=== PATIENT | male | born 1955 | race Caucasian/White ===

== ENCOUNTER 2016-04-25 10:08 | Outpatient (CLI) | payer OTHER | END 2016-04-25 10:09 | disposition home or self-care (01) | DX: M51.16 Intervertebral disc disorders with radiculopathy, lumbar region (principal) ==

== ENCOUNTER 2016-05-07 13:35 | Outpatient (CLI) | payer OTHER | END 2016-05-07 13:36 | disposition home or self-care (01) | DX: M47.816 Spondylosis without myelopathy or radiculopathy, lumbar region (principal); M47.817 Spondylosis without myelopathy or radiculopathy, lumbosacral region; M51.26 Other intervertebral disc displacement, lumbar region ==

== ENCOUNTER 2016-06-06 11:12 | Outpatient (CLI) | payer OTHER | END 2016-06-06 11:13 | disposition home or self-care (01) | DX: M77.32 Calcaneal spur, left foot (principal) ==

== ENCOUNTER 2016-11-21 13:19 | Outpatient (CLI) | payer OTHER ==
--- NOTE | 2016-11-21 15:05 | MRI Report ---
EXAM: LEFT KNEE MRI WITHOUT CONTRAST EXAM DATE: 11/21/2016 02:12 PM. CLINICAL HISTORY: Derangement, internal, KNEE NOS. COMPARISON: None. TECHNIQUE: Multiplanar, multisequence T1-weighted and fluid-sensitive sequences of the knee without c ontrast. Other: None. FINDINGS: Bones: Postsurgical changes versus old fracture deformity in the posterior and medial proximal tibia. No acute fractures or subluxations. Diffuse moderate marrow edema in the posterior proximal tibia in volving the juxta-articular region, associated with cystic changes in the posterior intercondylar ca nence, can be due to reactive changes. No other bone lesions. Articular Cartilage: Unremarkable. Medial Meniscus: A complex tear in the posterior horn of the medial meniscus with horizontal componen t that extends to the posterior third of the body, and small radial components in the free edge of th e posterior horn and the posterior meniscal root. Lateral Meniscus: The lateral meniscus is intact. Cruciate Ligaments: An intrasubstance longitudinal split tear in the posterior cruciate ligament with out laxity. The anterior cruciate ligament is intact. Collateral Ligaments: Mild grade 1 sprain of the medial collateral ligament with mild surrounding sophy ma. The posterior oblique and the lateral collateral ligament s are intact. Tendons: The quadriceps, patellar, semimembranosus, and popliteus tendons are unremarkable. Musculature: No edema or fatty atrophy. Other: Nonspecific mild effusion. No popliteal cyst. There is a cluster of septated ganglion cysts ad jacent to the origin of the lateral head of gastrocnemius measuring about 23 mm in length, 13 x 9 mm in cross section. No loose bodies. The medial and lateral retinacula, patellofemoral ligaments and i liotibial band are intact. No bursitis. Nonspecific subcutaneous edema around the knee. The fat pads are unremarkable. IMPRESSION: 1. A complex tear in the posterior horn of the medial meniscus with horizontal component that extends to the posterior third of the body, and small radial components in the free edge of the posterior ho rn and the posterior meniscal root. 2. An intrasubstance longitudinal split tear in the posterior cruciate ligament without laxity. 3. Mild grade 1 sprain of the medial collateral ligament. 4. Diffuse moderate marrow edema in the posterior proximal tibia involving the juxta-articular region , associated with cystic changes in the posterior intercondylar eminence, can be due to reactive almendarez ges, and/or contusion. 5. Postsurgical changes versus old fracture deformity in the posterior and medial proximal tibia. No acute cortical fracture. 6. A cluster of septated ganglion cysts adjacent to the origin of the lateral head of gastrocnemius m easuring about 23 mm in length, 13 x 9 mm in cross section, of uncertain clinical significance. [facility]CUL[facility] SECTION Referring Provider Line: [phone] SITE ID: [id number]
== END 2016-11-21 13:20 | disposition home or self-care (01) ==
LOC: DI 13:19
PROVIDERS: ATTEND Physician Assistant Medical
DX: M23.222 Derangement of posterior horn of medial meniscus due to old tear or injury, left knee (principal); M23.632 Other spontaneous disruption of medial collateral ligament of left knee; M23.622 Other spontaneous disruption of posterior cruciate ligament of left knee; M67.462 Ganglion, left knee

== ENCOUNTER 2018-02-13 08:00 | Outpatient (CLI) | payer OTHER ==
[2018-02-13 14:25] LABS: BASOPHILS % (AUTO) 0.7 %; EOSINOPHILS # (AUTO) 0.1 10^3/uL (0.0-0.7); EOSINOPHILS % (AUTO) 1.3 %; HGB - HEMOGLOBIN 15.6 g/dL (14.0-18.0); LYMPHOCYTES # (AUTO) 1.5 10^3/uL (1.5-3.5); LYMPHOCYTES % (AUTO) 26.8 %; MEAN CORPUSCULAR HEMOGLOBIN 30.2 pg (27.0-31.0); MEAN CORPUSCULAR VOLUME 88.7 fL (80.0-94.0); MEAN PLATELET VOLUME 8.9 fL (7.4-11.4); MONOCYTES # (AUTO) 0.4 10^3/uL (0.0-1.0); MONOCYTES % (AUTO) 7.3 %; NEUTROPHILS # (AUTO) 3.7 10^3/uL (1.5-6.6); NEUTROPHILS % (AUTO) 63.9 %; PLT - PLATELET COUNT 235 10^3/uL (130-450); RED BLOOD COUNT 5.16 10^6/uL (4.70-6.10); RED CELL DISTRIBUTION WIDTH 13.6 % (12.0-15.0); WHITE BLOOD COUNT 5.8 x10^3/uL (4.8-10.8)
[2018-02-13 14:54] LABS: ALBUMIN 4.3 g/dL (3.2-5.5); ALBUMIN/GLOBULIN RATIO 1.7 (1.0-2.2); ALKALINE PHOSPHATASE 63 IU/L (42-121); ALT ALANINE AMINOTRANSFERASE 30 IU/L (10-60); AST ASPARTATE AMINOTRANSFERASE 31 IU/L (10-42); BILIRUBIN,TOTAL 1.1 mg/dL (0.2-1.0); BUN - BLOOD UREA NITROGEN 15 mg/dL (6-20); CALCIUM 8.7 mg/dL (8.5-10.3); CARBON DIOXIDE - CO2 28 mmol/L (21-32); CHLORIDE 103 mmol/L (101-111); CHOL/HDL RATIO 6.6 (<5.0); CHOLESTEROL 212 mg/dL; CREATININE 0.6 mg/dL (0.6-1.2); GFR - MDRD 136 (>89); GLUCOSE 95 mg/dL (70-100); HDL CHOLESTEROL 32 mg/dL; LDL CHOLESTEROL,CALCULATED 134 mg/dL; LDL/HDL RATIO 4.2 (<3.6); SODIUM 138 mmol/L (135-145); TOTAL PROTEIN 6.8 g/dL (6.7-8.2); VLDL CHOLESTEROL 46 mg/dL
[2018-02-14 12:42] LABS: HEPATITIS C ANTIBODY NON-REACTIVE (NON-REACTIVE)
== END 2018-02-13 08:01 | disposition home or self-care (01) ==
LOC: LAB.R 08:00
PROVIDERS: ATTEND Physician Assistant Medical
DX: Z00.00 Encounter for general adult medical examination without abnormal findings (principal); Z12.5 Encounter for screening for malignant neoplasm of prostate; Z13.818 Encounter for screening for other digestive system disorders; Z79.899 Other long term (current) drug therapy; M54.16 Radiculopathy, lumbar region
CPT/HCPCS: 80053; 80061; 83721; 84153; 84443; 85025; 86803

== ENCOUNTER 2018-04-06 10:52 | Emergency (ER) | payer OTHER ==
[2018-04-06] MEDS ORDERED: METOPROLOL 5 MG/5 ML VIAL IVP STA ×3 (11:19→13:09)
[2018-04-06 11:27] LABS: BASOPHILS % (AUTO) 0.6 %; EOSINOPHILS % (AUTO) 0.8 %; HGB - HEMOGLOBIN 16.2 g/dL (14.0-18.0); LYMPHOCYTES # (AUTO) 1.5 10^3/uL (1.5-3.5); LYMPHOCYTES % (AUTO) 26.6 %; MEAN CORPUSCULAR HEMOGLOBIN 30.3 pg (27.0-31.0); MEAN CORPUSCULAR HGB CONC 34.2 g/dL (32.0-36.0); MEAN CORPUSCULAR VOLUME 88.6 fL (80.0-94.0); MEAN PLATELET VOLUME 8.6 fL (7.4-11.4); MONOCYTES # (AUTO) 0.5 10^3/uL (0.0-1.0); MONOCYTES % (AUTO) 8.7 %; NEUTROPHILS # (AUTO) 3.7 10^3/uL (1.5-6.6); NEUTROPHILS % (AUTO) 63.3 %; PLT - PLATELET COUNT 233 10^3/uL (130-450); RED BLOOD COUNT 5.35 10^6/uL (4.70-6.10); RED CELL DISTRIBUTION WIDTH 13.9 % (12.0-15.0); WHITE BLOOD COUNT 5.8 x10^3/uL (4.8-10.8)
--- NOTE | 2018-04-06 11:28 | ED Physician Documentation ---
History of Present Illness - Stated complaint Stated Complaint: RAPID HEAT BEAT - Chief complaint Chief Complaint: Cardiac - History obtained from History obtained from: Patient, Other (PMD) - History of Present Illness Timing: Unknown - Additonal information Additional information: The patient is a 62-year-old male who arrives from his primary physician's offic e where he was found to be tachycardic, with suspected atrial fibrillation. He reports palpitations, with his heart racing, for perhaps as long as 4 weeks. His symptoms shortly after the of his father. He suspected it was related to his grieving process. He denies any associated chest pain, shortness of breath, or lightheadedness. He denies history of similar symptoms in the past. He is otherwise healthy, and takes no medications. Review of Systems Constitutional: denies: Fever, Fatigue Ears: denies: Tinnitus/ringing Nose: denies: Congestion Throat: denies: Sore throat Cardiac: reports: Palpitations. denies: Chest pain / pressure Respiratory: denies: Dyspnea, Cough GI: denies: Abdominal Pain, Nausea, Vomiting : denies: Dysuria Skin: denies: Rash Musculoskeletal: denies: Back pain, Extremity swelling Neurologic: denies: Focal weakness, Numbness, Headache PD PAST MEDICAL HISTORY - Past Medical History Cardiovascular: None Respiratory: None Neuro: None Endocrine/Autoimmune: None - Present Medications Home Medications: Ambulatory Orders Medication Instructions Recorded Confirmed Metoprolol Succinate 50 mg PO DAILY #30 tab.er.24h 04/06/18 - Allergies Allergies/Adverse Reactions: Allergies Allergy/AdvReac Type Severity Reaction Status Date / Time No Known Drug Allergies Allergy Verified 04/06/18 11:07 - Social History Does the pt smoke?: No PD ED PE NORMAL - Vitals Vital signs reviewed: Yes (tachycardic with a ventricular rate in the 140s.) - General General: Alert and oriented X 3, Well developed/nourished - HEENT HEENT: Atraumatic, Moist mucous membranes - Neck Neck: No adenopathy, No JVD - Cardiac Cardiac: No murmur, Other (Rapid rate, regular rhythm.) - Respiratory Respiratory: No respiratory distress, Clear bilaterally - Abdomen Abdomen: Soft, Non tender - Back Back: No CVA TTP - Derm Derm: No rash - Extremities Extremities: No edema, No calf tenderness / cord - Neuro Neuro: Alert and oriented X 3, No motor deficit, No sensory deficit Results - Vitals Vitals: Oxygen O2 Source Room air - EKG (time done) 10:58 Rate: Rate (enter#) (144) Rhythm: Atrial flutter - Labs Labs: Laboratory Tests 04/06/18 04/06/18 04/06/18 11:13 11:13 11:13 WBC 5.8 RBC 5.35 Hgb 16.2 Hct 47.4 MCV 88.6 MCH 30.3 MCHC 34.2 RDW 13.9 Plt Count 233 MPV 8.6 Neut # (Auto) 3.7 Lymph # (Auto) 1.5 [place] # (Auto) 0.5 Eos # (Auto) 0.0 Baso # (Auto) 0.0 Absolute Nucleated RBC 0.00 Nucleated RBC % 0.0 Sodium 139 Potassium 4.0 Chloride 103 Carbon Dioxide 26 Anion Gap 10.0 BUN 20 Creatinine 1.0 Estimated GFR (MDRD) 75 L Glucose 96 Calcium 9.0 Total Bilirubin 1.6 H AST 23 ALT 20 Alkaline Phosphatase 74 Troponin I < 0.04 Total Protein 7.0 Albumin 4.4 Globulin 2.6 Albumin/Globulin Ratio 1.7 Lipase 30 - Rads (name of study) CXR Radiology: Prelim report reviewed, EMP read contemporaneously, See rad report (No acute cardiopulmonary abnormality.) PD MEDICAL DECISION MAKING - ED course Complexity details: reviewed results, re-evaluated patient, considered differential, d/w patient ED course: The patient's presentation is significant for atrial flutter with initially 2-1 block. His presentation does not suggest cardiac ischemia. His palpitations have been present for at least 2 weeks, and possibly up to 4 weeks. Electrocardioversion is not clinically indicated due to the duration of his symptoms with attendant risk of intracardiac thrombus and potential stroke. Cardiac ischemia is unlikely, and his troponin is normal. His blood pressure has been well maintained, and there is no evidence of cardiomyopathy. Treatment in the emergency department included administration of aspirin 324 mg orally, and Lopressor 5 mg IV 3. His heart rate responded with variable block, with ventricular rate low 100; his blood pressure briefly dipped into the low 90s systolic. Normal saline was administered IV, and his blood pressure improved. Subsequently his heart rate reverted to atrial flutter with 2:1 block. Diltiazem 10 mg was administered IV, with results of his heart rate coming down to the mid 80s, with rhythm remaining in atrial flutter with variable block. He maintained blood pressure of 108/75. I discussed his condition with Dr. Triplett, ball maker at [facility]. She advises outpatient treatment with metoprolol succinate 50 mg daily, and a full aspirin daily, with outpatient cardiology follow-up. The patient was given contact information to schedule follow-up appointment with cardiology. He is being discharged with prescription for metoprolol, as above. I discussed with him potentially worrisome signs or symptoms that should prompt reevaluation in the emergency department. Departure - Departure Disposition: 01 Home, Self Care Clinical Impression: Atrial flutter Qualifiers: Atrial flutter type: unspecified Qualified Code(s): I48.92 - Unspecified atrial flutter Condition: Stable Instructions: ED Paroxysmal Atrial Flutter Follow-Up: Evita Miller PA-C [Primary Care Provider] - [facility] [Provider Group] Prescriptions: Metoprolol Succinate 50 mg PO DAILY #30 tab.er.24h Comments: Drink plenty of fluids. Take metoprolol 50 mg daily as prescribed. Take 1 full aspirin (325 mg) daily. Schedule follow-up appointment with [facility] cardiology; phone number [phone]. Follow-up with your primary physician. Call to schedule appointment. Return to the emergency department if you develop increasing lightheadedness, shortness of breath, chest pain, or otherwise worsening symptoms. Discharge Date/Time: 04/06/18 15:35
[2018-04-06 11:38] LABS: ALBUMIN 4.4 g/dL (3.2-5.5); ALBUMIN/GLOBULIN RATIO 1.7 (1.0-2.2); BILIRUBIN,TOTAL 1.6 mg/dL (0.2-1.0)
--- NOTE | 2018-04-06 12:05 | XRAY Report ---
Reason: chest pain Procedure Date: 04/06/2018 Accession Number: [id number] / [id number] Procedure: XR - Chest 1 View X-Ray CPT Code: 73861 FULL RESULT: EXAM: CHEST RADIOGRAPHY EXAM DATE: 04/06/2018 11:55 AM. CLINICAL HISTORY: Chest pain. COMPARISON: None. TECHNIQUE: 1 view. FINDINGS: Lungs/Pleura: No focal opacities evident. No pleural effusion. No pneumothorax. Mediastinum: Within exam limitations, the cardiomediastinal contour is normal with suggestion of borderline cardiomegaly felt to be due to portable AP projectional technique. Additionally, mild calcification of the aortic arch noted. Other: None. IMPRESSION: No acute cardiopulmonary abnormality. [facility]
[2018-04-06] MEDS ORDERED: SODIUM CHLORIDE 0.9% 1,000 ML IV ONE (13:31)
[2018-04-06] MEDS ORDERED: diltiaZEM INJ 5 MG/ML VIAL IVP STA (13:46)
[2018-04-06] MEDS ORDERED: METOPROLOL SUCCINATE 50 MG TABLET PO STA (14:20)
[2018-04-06] MEDS ORDERED: ASPIRIN CHEW 81 MG TABLET PO STA (14:21)
[2018-04-06 15:35] VITALS: BP 105/90
== END 2018-04-06 15:35 | disposition home or self-care (01) ==
LOC: ED 10:52
DX: I48.92 Unspecified atrial flutter (principal); I45.2 Bifascicular block; R00.0 Tachycardia, unspecified
CPT/HCPCS: 36415; 71045; 80053; 83690; 84484; 85025; 93005; 96374; 96375; 96376; 99284; 99285; A9270

== ENCOUNTER 2018-05-18 08:00 | Outpatient (CLI) | payer OTHER ==
[2018-05-18 14:53] LABS: CHOLESTEROL 126 mg/dL; HDL CHOLESTEROL 25 mg/dL; LDL CHOLESTEROL,CALCULATED 75 mg/dL; VLDL CHOLESTEROL 26 mg/dL
== END 2018-05-18 23:59 | disposition home or self-care (01) ==
LOC: LAB.R 08:00
PROVIDERS: ATTEND Physician Assistant Medical
DX: E78.2 Mixed hyperlipidemia (principal); Z79.899 Other long term (current) drug therapy
CPT/HCPCS: 80061; 83721

== ENCOUNTER 2023-06-16 14:52 | Outpatient (CLI) | payer MEDICARE ==
[2023-06-16 15:23] LABS: BASOPHILS % (AUTO) 0.5 %; EOSINOPHILS # (AUTO) 0.1 10^3/uL (0.0-0.7); EOSINOPHILS % (AUTO) 1.1 %; HCT - HEMATOCRIT 46.7 % (42.0-52.0); HGB - HEMOGLOBIN 15.1 g/dL (14.0-18.0); LYMPHOCYTES # (AUTO) 1.9 10^3/uL (1.5-3.5); LYMPHOCYTES % (AUTO) 33.7 %; MEAN CORPUSCULAR HEMOGLOBIN 29.5 pg (27.0-31.0); MEAN CORPUSCULAR HGB CONC 32.3 g/dL (32.0-36.0); MEAN CORPUSCULAR VOLUME 91.4 fL (80.0-94.0); MEAN PLATELET VOLUME 10.2 fL (7.4-11.4); MONOCYTES # (AUTO) 0.4 10^3/uL (0.0-1.0); MONOCYTES % (AUTO) 7.6 %; NEUTROPHILS # (AUTO) 3.2 10^3/uL (1.5-6.6); NEUTROPHILS % (AUTO) 56.9 %; PLT - PLATELET COUNT 236 10^3/uL (130-450); RED BLOOD COUNT 5.11 10^6/uL (4.70-6.10); WHITE BLOOD COUNT 5.7 x10^3/uL (4.8-10.8)
[2023-06-16 15:36] LABS: ALBUMIN 4.3 g/dL (3.2-5.5); ALBUMIN/GLOBULIN RATIO 1.7 (1.0-2.2); CALCIUM 9.5 mg/dL (8.5-10.3); CREATININE 0.9 mg/dL (0.6-1.3); POTASSIUM 4.6 mmol/L (3.5-4.5); TOTAL PROTEIN 6.8 g/dL (6.4-8.9)
[2023-06-16 15:49] LABS: THYROID STIMULATING HORMONE 3.64 uIU/mL (0.34-5.60)
== END 2023-06-16 14:53 | disposition home or self-care (01) ==
LOC: LAB 14:52
PROVIDERS: ATTEND Nurse Practitioner Family
DX: R06.09 Other forms of dyspnea (principal); Z12.5 Encounter for screening for malignant neoplasm of prostate
CPT/HCPCS: 36415; 80053; 84443; 85025; G0103; 84153

== ENCOUNTER 2023-10-16 16:33 | Outpatient (CLI) | payer MEDICARE ==
--- NOTE | 2023-10-17 07:44 | XRAY Report ---
PROCEDURE: Knee 1-2V RT INDICATIONS: KNEE JOINT PAIN,RIGHT TECHNIQUE: 3 views of the knee was obtained. COMPARISON: None FINDINGS: Bones: No fractures or dislocations. No suspicious bony lesions. Moderate medial compartment joint space narrowing Soft tissues: No knee joint effusion. No suspicious soft tissue calcifications or masses. 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
--- NOTE | 2023-10-17 07:50 | XRAY Report ---
PROCEDURE: Ankle 1-2V RT INDICATIONS: KNEE JOINT PAIN,RIGHT TECHNIQUE: 2 views of the ankle were acquired. COMPARISON: None FINDINGS: Bones: No fractures or dislocations. Ankle mortise is normally aligned. No suspicious bony lesions . Generalized decreased osseous mineralization present. Small plantar calcaneal spur Soft tissues: Unremarkable without significant soft tissue swelling. No radiopaque foreign body. IMPRESSION: Osteopenia without fracture Reviewed by: Chu Hinojosa MD on 10/17/2023 6:49 AM AKAFRICA Approved by: Chu Hinojosa MD on 10/17/2023 6:49 AM AKDT Station ID: [email or web address]
== END 2023-10-16 16:34 | disposition home or self-care (01) ==
LOC: DI 16:33
PROVIDERS: ATTEND Nurse Practitioner Family
DX: M25.571 Pain in right ankle and joints of right foot (principal); M85.871 Other specified disorders of bone density and structure, right ankle and foot; M17.11 Unilateral primary osteoarthritis, right knee

== ENCOUNTER 2023-12-04 05:58 | Emergency (ER) | payer MEDICARE ==
[2023-12-04 06:13] VITALS: O2SAT 100
--- NOTE | 2023-12-04 06:22 | ED Physician Documentation ---
History of Present Illness - Stated complaint Stated Complaint: IRREGULAR HR - Chief complaint Chief Complaint: Cardiac - History obtained from History obtained from: Patient - Additonal information Additional information: The patient comes to the emergency department chief complaint of elevated heart rate. He has a history of episodes of this about a couple times a year but states that over recent months, they have been becoming much more frequent. He states that he usually just waits for the episode to pass and after a day or so it will; however, his symptoms started about 2-1/2 days ago and they have continued on. He states he just feels like something "is not right" in his chest and he really cannot describe it more specifically than this. He denies any lightheadedness or diaphoresis. No chest pain. He does get short of breath when he is walking around. He states that he does not remember being given a specific diagnosis but states that he was shocked out of the rhythm 1 time and kept in the hospital. He is scheduled to see his rn social services at the end of this month and start Holter monitoring study for the next 14 days after. No other complaints at this time. He does not take any medications for this right now because his episodes used to be so infrequent that he did not think it would be worth it to be on meds. PD PAST MEDICAL HISTORY - Past Medical History Cardiovascular: Arrhythmia Respiratory: None Neuro: None Endocrine/Autoimmune: None GI: None : None HEENT: Chronic hearing loss Psych: None Musculoskeletal: None Derm: None - Past Surgical History Past Surgical History: Yes Ortho: Spine surgery, Other - Present Medications Home Medications: Ambulatory Orders Medication Instructions Recorded Confirmed Metoprolol Succinate 50 mg PO DAILY #30 tab.er.24h 04/06/18 - Allergies Allergies/Adverse Reactions: Allergies Allergy/AdvReac Type Severity Reaction Status Date / Time No Known Drug Allergies Allergy Verified 04/06/18 11:07 - Social History Does the pt smoke?: No Smoking Status: Never smoker Does the pt drink ETOH?: No - Immunizations Immunizations are current?: Yes PD ED PE NORMAL - Vitals Vital signs reviewed: Yes - General General: Alert and oriented X 3, No acute distress, Well developed/nourished - HEENT HEENT: Atraumatic, PERRL, EOMI, Moist mucous membranes - Neck Neck: Supple, no meningeal sign - Cardiac Cardiac: No murmur, Strong equal pulses, Other (Tachycardic rate, irregularly irregular rhythm) - Respiratory Respiratory: No respiratory distress, Clear bilaterally - Abdomen Abdomen: Soft, Non tender, Non distended - Derm Derm: Warm and dry - Extremities Extremities: No deformity - Neuro Neuro: Alert and oriented X 3 - Psych Psych: Normal mood, Normal affect Results - Vitals Vitals: Vital Signs - 24 hr 12/04/23 12/04/23 12/04/23 06:05 06:10 06:15 Heart Rate 135 H 142 H 122 H Respiratory 18 16 18 Rate Blood Pressure 113/98 H 120/86 H O2 Saturation 100 100 100 12/04/23 12/04/23 12/04/23 06:38 06:39 07:07 Heart Rate 86 103 H 82 Respiratory 20 18 20 Rate Blood Pressure 107/89 H 108/84 H 121/99 H O2 Saturation 100 100 100 Oxygen O2 Source Room air - EKG (time done) 0607 EKG releavant findings:: EKG personally interpreted by author of this note. Relevant findings are: Rate: Rate (enter#) (136) Rhythm: Atrial flutter [place]: Normal Intervals: Normal RI QRS: Normal Ischemia: Normal ST segments Compare to prior EKG: Old EKG unavailable Computer interpretation: Disagree with computer (Disagree that EKG demonstrates acute [place]; No STEMI noted) - Labs Labs: Laboratory Tests 12/04/23 12/04/23 12/04/23 06:24 06:24 06:24 WBC 7.2 RBC 5.15 Hgb 15.0 Hct 48.0 MCV 93.2 MCH 29.1 MCHC 31.3 L RDW 13.2 Plt Count 235 MPV 10.1 Neut # (Auto) 4.3 Lymph # (Auto) 2.0 [place] # (Auto) 0.6 Eos # (Auto) 0.1 Baso # (Auto) 0.0 Absolute Nucleated RBC 0.00 Nucleated RBC % 0.0 Sodium 141 Potassium 4.0 Chloride 110 Carbon Dioxide 26 Anion Gap 5.0 L BUN 24 H Creatinine 1.0 Estimated GFR (MDRD) 74 L Glucose 107 H Calcium 8.1 L Total Bilirubin 0.4 AST 19 ALT 18 Alkaline Phosphatase 55 Troponin I High Sens 7.5 Total Protein 5.9 L Albumin 3.9 Globulin 2.0 L Albumin/Globulin Ratio 2.0 Lipase 35 PD Medical Decision Making - ED course Complexity details: reviewed results, re-evaluated patient, considered differential, d/w patient, d/w family ED course: The patient was treated symptomatically with IV fluids, IV Cardizem, and oral long-acting Cardizem. 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 The patient's heart rate did respond well to the Cardizem, But the patient was still in atrial flutter on reevaluation. At this point in time, the patient's laboratory studies look good, but he will need to be evaluated to determine whether he should have cardioversion or not. The patient is signed out to my oncoming colleague at change of shift, pending reevaluation and final disposition. Departure - Departure Clinical Impression: Atrial flutter with rapid ventricular response Condition: Stable Forms: PCP List
[2023-12-04] MEDS: diltiaZEM INJ 5 MG/ML VIAL IVP STA (06:28)
[2023-12-04] MEDS: SODIUM CHLORIDE 0.9% 1,000 ML IV STA (06:29)
[2023-12-04] MEDS: diltiaZEM CD 120 MG CAPSULE PO STA (06:29)
[2023-12-04 06:30] LABS: BASOPHILS % (AUTO) 0.6 %; EOSINOPHILS # (AUTO) 0.1 10^3/uL (0.0-0.7); EOSINOPHILS % (AUTO) 1.9 %; LYMPHOCYTES % (AUTO) 28.4 %; MEAN CORPUSCULAR HEMOGLOBIN 29.1 pg (27.0-31.0); MEAN CORPUSCULAR HGB CONC 31.3 g/dL (32.0-36.0); MEAN CORPUSCULAR VOLUME 93.2 fL (80.0-94.0); MEAN PLATELET VOLUME 10.1 fL (7.4-11.4); MONOCYTES # (AUTO) 0.6 10^3/uL (0.0-1.0); MONOCYTES % (AUTO) 8.9 %; NEUTROPHILS # (AUTO) 4.3 10^3/uL (1.5-6.6); NEUTROPHILS % (AUTO) 59.9 %; PLT - PLATELET COUNT 235 10^3/uL (130-450); RED BLOOD COUNT 5.15 10^6/uL (4.70-6.10); RED CELL DISTRIBUTION WIDTH 13.2 % (12.0-15.0); WHITE BLOOD COUNT 7.2 x10^3/uL (4.8-10.8)
[2023-12-04 06:51] LABS: ALBUMIN 3.9 g/dL (3.2-5.5); BILIRUBIN,TOTAL 0.4 mg/dL (0.2-1.0); CALCIUM 8.1 mg/dL (8.5-10.3); TOTAL PROTEIN 5.9 g/dL (6.4-8.9)
--- NOTE | 2023-12-04 07:38 | ED Physician Documentation ---
ED Addendum - Addendum Addendum: 12/04/23 07:[address] Arauz at shift change. Briefly this is a 68-year-old gentleman who has a history of intermittent a flutter albeit rarely, now has felt it several times this month. He was in rapid a flutter on arrival and on my examination now he is rate controlled after Cardizem and feeling comfortable. He has a negative troponin. He already has plans to see a dairy technologist and we discussed cardioversion but given that he has had it several times this month I think the risk of stroke would outweigh potential benefit and he is discharged on Cardizem and Eliquis. Disposition: Discharged home Condition: Stable Diagnosis: 1. Paroxysmal atrial flutter
[2023-12-04 07:59] VITALS: BP 121/82
== END 2023-12-04 07:47 | disposition home or self-care (01) ==
LOC: ED 05:58
DX: I48.92 Unspecified atrial flutter (principal); Z79.01 Long term (current) use of anticoagulants; Z79.899 Other long term (current) drug therapy
CPT/HCPCS: 36415; 80053; 83690; 84484; 85025; 93005; 96374; 99283; A9270

== ENCOUNTER 2023-12-07 02:14 | Emergency (ER) | payer MEDICARE ==
--- NOTE | 2023-12-07 02:19 | ED Physician Documentation ---
History of Present Illness - Stated complaint Stated Complaint: HIGH HR - History obtained from History obtained from: Patient - Additonal information Additional information: HPI from patient. 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 Denies chest pain, shortness of breath. This patient was treated released from this emergency department 3 days ago for rapid atrial fibrillation/flutter. On that visit, rate control was achieved with IV and p.o. diltiazem, although he was discharged still in atrial flutter. He was prescribed Cartia XT 180 mg as well as Eliquis 5 mg; he says he filled both these prescriptions and has been taking them as prescribed. He says he only had 1 other similar episode for which she sought medical attention; he says this was in 2019 and I see note in [facility] for this visit, was discharged still in atrial flutter at that time. However, the patient says he was subsequently electrocardioverted. He says he has had occasional episodes of these rapid palpitations but they have always resolved spontaneously, typically within a few hours of onset. But time he was discharged from this ED 3 days ago, the patient had resolution of his palpitations until they reoccurred tonight. He says he took his pulse at home when he woke up with these palpitations and his heart rate was in the 140s. Review of Systems Cardiac: reports: Palpitations. denies: Chest pain / pressure, Pedal edema, Calf pain Respiratory: reports: Reviewed and negative GI: reports: Reviewed and negative PD PAST MEDICAL HISTORY - Past Medical History Cardiovascular: Arrhythmia Respiratory: None Neuro: None Endocrine/Autoimmune: None GI: None : None HEENT: Chronic hearing loss Psych: None Musculoskeletal: None Derm: None - Past Surgical History Past Surgical History: Yes Ortho: Spine surgery, Other - Present Medications Home Medications: Ambulatory Orders Medication Instructions Recorded Confirmed Metoprolol Succinate 50 mg PO DAILY #30 tab.er.24h 04/06/18 Apixaban [Eliquis] 1 tab PO BID #60 tablet 12/04/23 diltiaZEM CD [Cardizem Cd] 180 mg PO DAILY #30 cap 12/04/23 diltiaZEM CD [Cardizem Cd] 240 mg PO DAILY #30 cap 12/07/23 - Allergies Allergies/Adverse Reactions: Allergies Allergy/AdvReac Type Severity Reaction Status Date / Time No Known Drug Allergies Allergy Verified 04/06/18 11:07 - Social History Does the pt smoke?: No Smoking Status: Never smoker Does the pt drink ETOH?: No - Immunizations Immunizations are current?: Yes PD ED PE NORMAL - Vitals Vital signs reviewed: Yes - General General: Alert and oriented X 3, No acute distress, Well developed/nourished - Neck Neck: Supple, no meningeal sign - Cardiac Cardiac: No murmur - Respiratory Respiratory: No respiratory distress, Clear bilaterally PD ED PE EXPANDED - Cardiac Cardiac: Tachy, Regular Rhythm Results - Vitals Vitals: Vital Signs - 24 hr 12/07/23 12/07/23 12/07/23 02:17 02:38 02:50 Temperature 37.2 C Heart Rate 134 H 84 87 Respiratory 14 16 16 Rate Blood Pressure 132/97 H 105/82 H 126/95 H O2 Saturation 98 98 95 12/07/23 03:04 Temperature Heart Rate 86 Respiratory 16 Rate Blood Pressure 119/91 H O2 Saturation 95 Oxygen O2 Source Room air - EKG (time done) No standard instances EKG releavant findings:: EKG personally interpreted by author of this note. Relevant findings are: Rate: Rate (enter#) (133) Rhythm: Atrial flutter [place]: Normal Ischemia: Normal ST segments, Other (PVC) - Labs Labs: Laboratory Tests 12/07/23 12/07/23 02:25 02:25 WBC 6.2 RBC 5.13 Hgb 15.0 Hct 46.8 MCV 91.2 MCH 29.2 MCHC 32.1 RDW 13.2 Plt Count 225 MPV 9.8 Neut # (Auto) 3.3 Lymph # (Auto) 2.2 [place] # (Auto) 0.6 Eos # (Auto) 0.1 Baso # (Auto) 0.0 Absolute Nucleated RBC 0.00 Nucleated RBC % 0.0 Sodium 142 Potassium 3.8 Chloride 108 Carbon Dioxide 27 Anion Gap 7.0 BUN 29 H Creatinine 1.5 H Estimated GFR (MDRD) 46 L Glucose 117 H Calcium 9.2 Troponin I High Sens 10.7 - Rads (name of study) chest xray Relevant Findings:: Prelim report reviewed, See rad report PD Medical Decision Making - ED course Complexity details: reviewed old records, reviewed results, re-evaluated patient, considered differential, d/w patient ED course: Patient presents in atrial flutter with rapid ventricular response, heart rate mostly in the 130s. Occasionally has dips of the heart rate into the 100-110 range at which time the flutter waves become quite apparent on the cardiac/vascular sonographer. He is given 15 mg Cardizem IV which rapidly resulted in rate control, heart rate 70s-80s although clearly remains in atrial flutter on cardiac/vascular sonographer as evidenced by what are clearly flutter waves. Normal SBP with mildly elevated DBP during ED stay. Normal CBC, normal troponin (10.7). Basic metabolic profile is notable for elevated BUN (29), creatinine (1.5). While these are only mild elevations, it is noted that these values were normal 3 days ago when he was in the emergency department. I discussed all these results with the patient and advised him to mention these results to his primary care provider as well as the supervisor roving when he follows up with them (scheduled for later this month). Patient is given diltiazem CD 240mg prior to discharge to cover today's dose that he would have taken later this morning. As noted above in HPI, the patient is taking 180 diltiazem extended release that was prescribed from this ED 3 days ago. Seeing how he has now had another episode of rapid ventricular response, I am prescribing the higher dose (240mg). He says he is flying to [place] (for his mother's ) this morning and his shuttle is leaving at 7 AM; thus, pharmacies will not be open in time to fill the rx today and this is why I have provided today's dose. he is given paper rx for the 240mg cardizem (cd) and instructed to stop taking the 180mg dose. Departure - Departure Disposition: 01 Home, Self Care Clinical Impression: Atrial flutter with rapid ventricular response Condition: Good Instructions: Atrial Flutter Prescriptions: diltiaZEM CD [Cardizem Cd] 240 mg PO DAILY #30 cap Comments: There were no concerning abnormalities on tonight's blood test, but your kidney tests were slightly above normal range, and this is different from just 3 days ago when you were last in the emergency department. It is important that you follow-up with your primary care provider, next available appointment, for reevaluation. When you follow-up, it is important that you mention your abnormal kidney tests, as they will likely want to recheck these numbers (BUN and creatinine). I am providing you with a prescription for a higher dose of the diltiazem/Cardizem. On your previous visit, you were prescribed 180 mg; I am increasing this dose to 240 mg once per day. Only take the 240 mg dose once per day (do not take the 180 mg dose). Forms: PCP List Discharge Date/Time: 12/07/23 04:12
[2023-12-07] MEDS: diltiaZEM INJ 5 MG/ML VIAL IVP STA (02:35)
[2023-12-07 02:36] LABS: BASOPHILS % (AUTO) 0.5 %; EOSINOPHILS # (AUTO) 0.1 10^3/uL (0.0-0.7); EOSINOPHILS % (AUTO) 2.2 %; HCT - HEMATOCRIT 46.8 % (42.0-52.0); LYMPHOCYTES # (AUTO) 2.2 10^3/uL (1.5-3.5); LYMPHOCYTES % (AUTO) 35.9 %; MEAN CORPUSCULAR HEMOGLOBIN 29.2 pg (27.0-31.0); MEAN CORPUSCULAR HGB CONC 32.1 g/dL (32.0-36.0); MEAN CORPUSCULAR VOLUME 91.2 fL (80.0-94.0); MEAN PLATELET VOLUME 9.8 fL (7.4-11.4); MONOCYTES # (AUTO) 0.6 10^3/uL (0.0-1.0); NEUTROPHILS # (AUTO) 3.3 10^3/uL (1.5-6.6); NEUTROPHILS % (AUTO) 52.2 %; PLT - PLATELET COUNT 225 10^3/uL (130-450); RED BLOOD COUNT 5.13 10^6/uL (4.70-6.10); RED CELL DISTRIBUTION WIDTH 13.2 % (12.0-15.0); WHITE BLOOD COUNT 6.2 x10^3/uL (4.8-10.8)
[2023-12-07 02:53] VITALS: O2SAT 95
[2023-12-07 02:53] LABS: CALCIUM 9.2 mg/dL (8.5-10.3); CREATININE 1.5 mg/dL (0.6-1.3); POTASSIUM 3.8 mmol/L (3.5-4.5)
[2023-12-07 02:55] LABS: TROPONIN I HIGH SENSITIVITY 10.7 ng/L (2.3-19.7)
[2023-12-07 03:14] VITALS: BP 119/91
[2023-12-07] MEDS: diltiaZEM CD 240 MG CAPSULE PO SCH (03:56)
--- NOTE | 2023-12-07 09:08 | XRAY Report ---
PROCEDURE: Chest 2V INDICATIONS: ZABRINA/flutter TECHNIQUE: 2 views of the chest were acquired. COMPARISON: None. FINDINGS: Surgical changes and devices: None Lungs and pleura: No dense consolidation or pleural effusion. Mediastinum: Normal heart size Bones and chest wall: Degenerative changes IMPRESSION: No acute radiographic abnormality. Agree with preliminary report. Reviewed by: Mason Grayson MD on 12/07/2023 9:06 AM PDT Approved by: Mason Grayson MD on 12/07/2023 9:06 AM PDT Station ID: [id number]
== END 2023-12-07 04:12 | disposition home or self-care (01) ==
LOC: ED 02:14
DX: I48.92 Unspecified atrial flutter (principal); Z79.01 Long term (current) use of anticoagulants
CPT/HCPCS: 36415; 71046; 80048; 84484; 85025; 93005; 96374; 99284; A9270